=== PATIENT | female | born 1955 | race Caucasian/White ===

== ENCOUNTER 2020-09-30 19:57 | Emergency (ER) | payer MEDICARE ==
[2020-09-30] MEDS ORDERED: Guaifenesin DM 100-10/5 ML UDCUP ONE ×2 (20:27→20:33)
[2020-09-30] MEDS ORDERED: Albuterol 200 PUFF (6.7GM INHALER) ONE (20:33)
[2020-09-30] MEDS ORDERED: Benzonatate 100 MG CAP ONE (20:33)
[2020-09-30] MEDS ORDERED: HYDROcodone/Acetaminophen 5/325 mg Tablet ONE (20:33)
--- NOTE | 2020-09-30 21:30 | RAD ---
EXAM: CHEST ONE VIEW HISTORY: Worsening productive cough. Covid positive. COMPARISON: None FINDINGS: Cardiac silhouette and pulmonary vasculature are within normal limits for the portable technique of t he study. There are bibasilar linear opacities with ill-defined patchy opacity right lung base. No pleural effusion is evident. Degenerative changes are seen in the spine. IMPRESSION: Nonspecific bibasilar linear opacities and minimal patchy opacity right lung base. Findings may be at tributable to bibasilar atelectasis. Developing pneumonitis at either lung base is a possibility.
== END 2020-09-30 22:24 | disposition home or self-care (01) ==
LOC: MADERS 19:57
DX: J20.9 Acute bronchitis, unspecified (principal); E11.9 Type 2 diabetes mellitus without complications; K21.9 Gastro-esophageal reflux disease without esophagitis; K58.9 Irritable bowel syndrome, unspecified; E78.5 Hyperlipidemia, unspecified; I10 Essential (primary) hypertension; G35 Multiple sclerosis; Z87.891 Personal history of nicotine dependence; Z79.84 Long term (current) use of oral hypoglycemic drugs; Z79.899 Other long term (current) drug therapy; Z79.891 Long term (current) use of opiate analgesic
CPT/HCPCS: 71045